=== PATIENT | male | born 1935 | race Caucasian/White ===

== ENCOUNTER 2020-02-13 19:53 | Inpatient (IN) | payer MEDICARE, OTHER ==
[2020-02-13 20:47] LABS: Basophils % (A) 0 %; Eosinophils # (A) 0.2 k/uL (0-0.7); Eosinophils % (A) 1 %; HCT 44.3 % (39.0-53.0); HGB 14.4 gm/dL (13.0-17.5); Lymphocytes # (A) 1.3 k/uL (1.0-4.8); Lymphocytes % (A) 8 %; MCH 33.6 pg (25.0-35.0); MCHC 32.6 g/dL (31.0-37.0); Macrocytosis Slight; Mean Platelet Volume 9.3; Monocytes # (A) 0.9 k/uL (0-1.0); Monocytes % (A) 6 %; Neutrophils % (A) 84 %; Platelet Count 107 k/uL (150-450); RDW 13.7 % (11.5-15.5); WBC 15.5 k/uL (3.8-10.6)
--- NOTE | 2020-02-13 20:50 | XR ---
EXAMINATION TYPE: XR chest 2V DATE OF EXAM: 02/13/2020 COMPARISON: None INDICATION: Weakness nausea TECHNIQUE: Frontal and lateral views of the chest are obtained. FINDINGS: The heart size is normal. The pulmonary vasculature is normal. The lungs are clear. No focal consolidations are evident. Sternotomy wires are in the midline. Cardi ac valve surgery is evident. IMPRESSION: 1. No acute pulmonary process.
[2020-02-13 20:56] LABS: INR 1.2 (<1.2); Partial Thromboplastin Time 26.6 sec (22.0-30.0); Prothrombin Time 12.2 sec (9.0-12.0)
[2020-02-13 20:58] LABS: ALT 21 U/L (4-49); AST 28 U/L (17-59); African American GFR (CKD) >90 (>60 ml/min/1.73 sqM); Albumin 4.1 g/dL (3.5-5.0); Alkaline Phosphatase 88 U/L (38-126); Anion Gap 9 mmol/L; Blood Urea Nitrogen 22 mg/dL (9-20); Calcium 9.1 mg/dL (8.4-10.2); Carbon Dioxide 26 mmol/L (22-30); Chloride 101 mmol/L (98-107); Creatine Kinase 59 U/L (55-170); Glucose 108 mg/dL (74-99); Magnesium 1.5 mg/dL (1.6-2.3); Non-African American GFR(CKD) 84 (>60 ml/min/1.73 sqM); Potassium 3.7 mmol/L (3.5-5.1); Sodium 136 mmol/L (137-145); Total Bilirubin 1.7 mg/dL (0.2-1.3); Total Protein 6.8 g/dL (6.3-8.2)
[2020-02-13 22:11] LABS: Appearance,Urine Clear (Clear); Bacteria,Urine Rare /hpf; Bilirubin,Urine Negative (Negative); Blood,Urine Negative (Negative); Color,Urine Light Yellow; Glucose,Urine (UA) Negative (Negative); Ketones,Urine Negative (Negative); Leukocyte Esterase,Urine Small (Negative); Nitrite,Urine Negative (Negative); PH, Urine 6.5 (5.0-8.0); Protein,Urine Negative (Negative); RBC,Urine 1 /hpf (0-5); Specific Gravity,Urine 1.006 (1.001-1.035); Urobilinogen,Urine <2.0 mg/dL (<2.0); WBC,Urine 7 /hpf (0-5)
[2020-02-13] MEDS ORDERED: cefTRIAXone IN SWFI 1,000 MG/10 ML SYRINGE IVP STA (22:17)
--- NOTE | 2020-02-13 23:04 | CT ---
EXAMINATION TYPE: CT abdomen pelvis w con DATE OF EXAM: 02/13/2020 COMPARISON: None HISTORY: Nausea, weakness and elevated WBC. CT DLP: 901.4 mGycm Automated exposure control for dose reduction was used. CONTRAST: Performed with IV Contrast, patient injected with 100ml mL of Isovue 300. Images were obtained from the diaphragm to the floor the pelvis with IV contrast. There is some infiltrate and atelectasis in the left lower lobe. There is no pleural effusion. There is mild interstitial infiltrate right lower lobe. There is small hiatal hernia. Heart is enlarged. Th e stomach is intact. Liver shows no focal defect. The bile ducts are not dilated. There is 1 cm calci fied gallstone in the gallbladder neck. Spleen is intact. There is no pancreatic mass. Pancreas appea rs normal. There is no adrenal mass. Kidneys have normal size. There is no hydronephrosis. There is 4 cm cortica l cyst medial left kidney. Delayed images show normal renal excretion. Ureters are not dilated. There is some trabeculation and linear density within the posterior urinary bladder. There is right-sided inguinal hernia that appears to contain a small loop of ileum. I see no sign of a bowel obstruction. There is prostatic calcification. There is no free fluid in the pelvis. There is no mesenteric edema. There is no ascites or free air. There is no bowel obstruction. Appendi x is not definitely seen. There is no sign of thickened appendix. Lumbar vertebra have normal alignme nt. There is narrowing of lumbar disc spaces with spurring. Posterior elements are intact. There is n o compression fracture. Bony pelvis is intact. IMPRESSION: Cholelithiasis. No dilated ducts. Atheromatous aorta. Right inguinal hernia containing short piece of right ilium. No evidence of bowel obstruction. Abnormal posterior urinary bladder with some linear density that could relate to trabeculation. Bladd er tumor is possible. Follow-up recommended. Left lower lobe pneumonia.
[2020-02-13] MEDS ORDERED: AZITHROMYCIN 500 MG in SODIUM CHLORIDE 0.9% 250 ML IVPB STA (23:14)
--- NOTE | 2020-02-13 23:15 | ED ---
Weakness HPI - General Chief complaint: Weakness Stated complaint: Nausea, Weakness Time Seen by Provider: 02/13/20 20:05 Source: patient Mode of arrival: ambulatory Limitations: no limitations - History of Present Illness Initial comments: Patient is an 84-year-old male past medical history of A. fib who presents to the emergency room with reported generalized weakness and nausea. Patient states that he was out on his boat today. He was having anorexia, stating that food just didn't seem like it tasted good. Patient was nauseated without any vomiting. Had some chills without recorded fever. He denies any abdominal pain. No changes in his bowel or bladder habits. Denies chest pain. No shortness of breath. Does admit to a cough. No sick contacts with similar symptoms. No recent medication changes. There are no other alleviating, pre cipitating or modifying factors - Related Data Home Medications Medication Instructions Recorded Confirmed Apixaban [Eliquis] 5 mg PO BID 02/13/20 02/13/20 RX: Atorvastatin [Lipitor] 20 mg PO HS@199902/13/20 02/13/20 RX: Omeprazole [PriLOSEC] 20 mg PO DAILY 02/13/20 02/13/20 RX: Timolol [Betimol 0.5% Ophth 1 drop BOTH EYES BID 02/13/20 02/13/20 Soln] Vitamin D2 (Unknown Strength) 1 tab PO DAILY 02/13/20 02/13/20 Vits A,C,E/Lutein/Minerals 1 tab PO DAILY 02/13/20 02/13/20 [Ocuvite with Lutein Tablet] Allergies Allergy/AdvReac Type Severity Reaction Status Date / Time levofloxacin [From Levaquin] Allergy aches Verified 02/13/20 22:50 Review of Systems ROS Statement: Those systems with pertinent positive or pertinent negative responses have been documented in the HPI. ROS Other: All systems not noted in ROS Statement are negative. Past Medical History Past Medical History: Atrial Fibrillation, GERD/Reflux, Hyperlipidemia History of Any Multi-Drug Resistant Organisms: None Reported Past Surgical History: Prostate Surgery Additional Past Surgical History / Comment(s): skin problem removed, TURP, atrial valve replaced. 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 fib with a rate of 96. QRS 96. QTC of 472. No acute ST segment elevations or depressions Medical Decision Making - Medical Decision Making Upon arrival the patient is placed into room 2. A thorough history and physical exam was performed. Peripheral IV is established. Laboratory studies were conducted. White count elevated at 15.5. Magnesium low at 1.5. Urinalysis shows rare bacteria and small leukocyte esterase. Chest x-ray demonstrates no a cute cardiopulmonary processes. CT the patient's abdomen and pelvis is performed because of leukocytosis, low-grade fever and nausea. It demonstrates cholelithiasis, right inguinal hernia, left lower lobe pneumonia. Abnormal findings with the urinary bladder however patient's son reports that these are chronic for him. The patient is given a dose of Rocephin and azithromycin. Patient will be admitted to [facility]. Dr. Connelly does present to the emergency room to evaluate the patient. Patient agreed to this treatment plan and was transferred to the floor in stable - Lab Data Result diagrams: 02/13/20 20:37 02/13/20 20:37 Lab Results 02/13/20 02/13/20 02/13/20 Range/Units 20:37 20:37 20:37 WBC 15.5 H (3.8-10.6) k/uL RBC 4.30 (4.30-5.90) m/uL Hgb 14.4 (13.0-17.5) gm/dL Hct 44.3 (39.0-53.0) % MCV 103.0 H (80.0-100.0) fL MCH 33.6 (25.0-35.0) pg MCHC 32.6 (31.0-37.0) g/dL RDW 13.7 (11.5-15.5) % Plt Count 107 L (150-450) k/uL Neutrophils % 84 % Lymphocytes % 8 % Monocytes % 6 % Eosinophils % 1 % Basophils % 0 % Neutrophils # 13.0 H (1.3-7.7) k/uL Lymphocytes # 1.3 (1.0-4.8) k/uL Monocytes # 0.9 (0-1.0) k/uL Eosinophils # 0.2 (0-0.7) k/uL Basophils # 0.0 (0-0.2) k/uL Macrocytosis Slight PT 12.2 H (9.0-12.0) sec INR 1.2 H (<1.2) APTT 26.6 (22.0-30.0) sec Sodium (137-145) mmol/L Potassium (3.5-5.1) mmol/L Chloride (98-107) mmol/L Carbon Dioxide (22-30) mmol/L Anion Gap mmol/L BUN (9-20) mg/dL Creatinine (0.66-1.25) mg/dL Est GFR (CKD-EPI)AfAm (>60 ml/min/1.73 sqM) Est GFR (CKD-EPI)NonAf (>60 ml/min/1.73 sqM) Glucose (74-99) mg/dL Plasma Lactic Acid Ty (0.7-2.0) mmol/L Calcium (8.4-10.2) mg/dL Magnesium (1.6-2.3) mg/dL Total Bilirubin (0.2-1.3) mg/dL AST (17-59) U/L ALT (4-49) U/L Alkaline Phosphatase (38-126) U/L Creatine Kinase (55-170) U/L Troponin I (0.000-0.034) ng/mL NT-Pro-B Natriuret Pep pg/mL Total Protein (6.3-8.2) g/dL Albumin (3.5-5.0) g/dL Lipase (23-300) U/L TSH (0.465-4.680) mIU/L Urine Color Light Yellow Urine Appearance Clear (Clear) Urine pH 6.5 (5.0-8.0) Ur Specific [place] 1.006 (1.001-1.035) Urine Protein Negative (Negative) Urine Glucose (UA) Negative (Negative) Urine Ketones Negative (Negative) Urine Blood Negative (Negative) Urine Nitrite Negative (Negative) Urine Bilirubin Negative (Negative) Urine Urobilinogen <2.0 (<2.0) mg/dL Ur Leukocyte Esterase Small H (Negative) Urine RBC 1 (0-5) /hpf Urine WBC 7 H (0-5) /hpf Urine Bacteria Rare H (None) /hpf 02/13/20 02/13/20 02/13/20 Range/Units 20:37 20:37 20:37 WBC (3.8-10.6) k/uL RBC (4.30-5.90) m/uL Hgb (13.0-17.5) gm/dL Hct (39.0-53.0) % MCV (80.0-100.0) fL MCH (25.0-35.0) pg MCHC (31.0-37.0) g/dL RDW (11.5-15.5) % Plt Count (150-450) k/uL Neutrophils % % Lymphocytes % % Monocytes % % Eosinophils % % Basophils % % Neutrophils # (1.3-7.7) k/uL Lymphocytes # (1.0-4.8) k/uL Monocytes # (0-1.0) k/uL Eosinophils # (0-0.7) k/uL Basophils # (0-0.2) k/uL Macrocytosis PT (9.0-12.0) sec INR (<1.2) APTT (22.0-30.0) sec Sodium 136 L (137-145) mmol/L Potassium 3.7 (3.5-5.1) mmol/L Chloride 101 (98-107) mmol/L Carbon Dioxide 26 (22-30) mmol/L Anion Gap 9 mmol/L BUN 22 H (9-20) mg/dL Creatinine 0.73 (0.66-1.25) mg/dL Est GFR (CKD-EPI)AfAm >90 (>60 ml/min/1.73 sqM) Est GFR (CKD-EPI)NonAf 84 (>60 ml/min/1.73 sqM) Glucose 108 H (74-99) mg/dL Plasma Lactic Acid Ty 1.2 (0.7-2.0) mmol/L Calcium 9.1 (8.4-10.2) mg/dL Magnesium 1.5 L (1.6-2.3) mg/dL Total Bilirubin 1.7 H (0.2-1.3) mg/dL AST 28 (17-59) U/L ALT 21 (4-49) U/L Alkaline Phosphatase 88 (38-126) U/L Creatine Kinase 59 (55-170) U/L Troponin I <0.012 (0.000-0.034) ng/mL NT-Pro-B Natriuret Pep pg/mL Total Protein 6.8 (6.3-8.2) g/dL Albumin 4.1 (3.5-5.0) g/dL Lipase 58 (23-300) U/L TSH 2.320 (0.465-4.680) mIU/L Urine Color Urine Appearance (Clear) Urine pH (5.0-8.0) Ur Specific [place] (1.001-1.035) Urine Protein (Negative) Urine Glucose (UA) (Negative) Urine Ketones (Negative) Urine Blood (Negative) Urine Nitrite (Negative) Urine Bilirubin (Negative) Urine Urobilinogen (<2.0) mg/dL Ur Leukocyte Esterase (Negative) Urine RBC (0-5) /hpf Urine WBC (0-5) /hpf Urine Bacteria (None) /hpf 02/13/20 Range/Units 20:37 WBC (3.8-10.6) k/uL RBC (4.30-5.90) m/uL Hgb (13.0-17.5) gm/dL Hct (39.0-53.0) % MCV (80.0-100.0) fL MCH (25.0-35.0) pg MCHC (31.0-37.0) g/dL RDW (11.5-15.5) % Plt Count (150-450) k/uL Neutrophils % % Lymphocytes % % Monocytes % % Eosinophils % % Basophils % % Neutrophils # (1.3-7.7) k/uL Lymphocytes # (1.0-4.8) k/uL Monocytes # (0-1.0) k/uL Eosinophils # (0-0.7) k/uL Basophils # (0-0.2) k/uL Macrocytosis PT (9.0-12.0) sec INR (<1.2) APTT (22.0-30.0) sec Sodium (137-145) mmol/L Potassium (3.5-5.1) mmol/L Chloride (98-107) mmol/L Carbon Dioxide (22-30) mmol/L Anion Gap mmol/L BUN (9-20) mg/dL Creatinine (0.66-1.25) mg/dL Est GFR (CKD-EPI)AfAm (>60 ml/min/1.73 sqM) Est GFR (CKD-EPI)NonAf (>60 ml/min/1.73 sqM) Glucose (74-99) mg/dL Plasma Lactic Acid Ty (0.7-2.0) mmol/L Calcium (8.4-10.2) mg/dL Magnesium (1.6-2.3) mg/dL Total Bilirubin (0.2-1.3) mg/dL AST (17-59) U/L ALT (4-49) U/L Alkaline Phosphatase (38-126) U/L Creatine Kinase (55-170) U/L Troponin I (0.000-0.034) ng/mL NT-Pro-B Natriuret Pep 1500 pg/mL Total Protein (6.3-8.2) g/dL Albumin (3.5-5.0) g/dL Lipase (23-300) U/L TSH (0.465-4.680) mIU/L Urine Color Urine Appearance (Clear) Urine pH (5.0-8.0) Ur Specific [place] (1.001-1.035) Urine Protein (Negative) Urine Glucose (UA) (Negative) Urine Ketones (Negative) Urine Blood (Negative) Urine Nitrite (Negative) Urine Bilirubin (Negative) Urine Urobilinogen (<2.0) mg/dL Ur Leukocyte Esterase (Negative) Urine RBC (0-5) /hpf Urine WBC (0-5) /hpf Urine Bacteria (None) /hpf Disposition Clinical Impression: CAP (community acquired pneumonia), Leukocytosis, Nausea, Cholelithiases Disposition: ADMITTED IP TO THIS [facility] Condition: Stable Is patient prescribed a controlled substance at d/c from ED?: No Decision to Admit Reason: Admit from EC Decision Date: 02/13/20 Decision Time: 23:31
[2020-02-13] MEDS ORDERED: ONDANSETRON 4 MG/2 ML VIAL IVP PRN (23:31)
[2020-02-13] MEDS ORDERED: NALOXONE 0.4 MG/ML 1 ML VIAL IV PRN (23:31)
[2020-02-13] MEDS ORDERED: SODIUM CHLORIDE 0.9% 1,000 ML IV SCH (23:45)
[2020-02-14 01:08] VITALS: RESP 16
--- NOTE | 2020-02-14 02:59 | P.HPIM ---
History of Present Illness H&P Date: 02/14/20 The patient is an 84-year-old male with a PMH of permanent A. fib, hyperlipidemia, and chronic GERD who presented to the ED accompanied by son with complaints of nausea and generalized weakness. Patient reports that he was in his usual state of health until today when he was on his boat with his daughter when he attempted to eat some food and immediately became nauseous with the smell. He denied episodes of vomiting. He subsequently felt warm to his daughter though his temperature was not checked. The patient also endorsed feeling tired and weak, and called his son to seek medical attention, which as per his son at the bedside is unusual for him. At time of interview, the patient reported that he feels somewhat better, though not back to his baseline as of yet. He endorsed a chronic cough which has previously been worked up by multiple providers and was attributed to his chronic GERD as per the patient's son. He reported that the cough did sound somewhat more "wet" over the past 2 days. The patient otherwise denied chest discomfort, Shortness of breath, or palpitations. He also denied dysuria, urinary frequency, abdominal pain, diarrhea, or dizziness. The patient lives by himself and is independent in all of his ADLs and is overall in good health as per his son. In the emergency room, a CT abdomen revealed cholelithiasis, left lower lobe pneumonia, and an abnormal posterior urinary bladder with the possibility of a bladder tumor. EKG had revealed A. fib with PVCs at 96 bpm as reviewed by me. Laboratory evaluation revealed a WBC count of 15.5, hemoglobin of 14.4, platelets 107, troponin less than 0.012, sodium 136, potassium 3.7, BUN 22, creatinine 0.73, glucose 108, lactic acid 1.2, BNP 1500, and an unremarkable UA. Review of Systems Pertinent positives and negatives as discussed in HPI, a complete review of systems was performed and all other systems are negative. Past Medical History Past Medical History: Atrial Fibrillation, GERD/Reflux, Hyperlipidemia History of Any Multi-Drug Resistant Organisms: None Reported Past Surgical History: Prostate Surgery Additional Past Surgical History / Comment(s): skin problem removed, TURP, atrial valve replaced. Past Anesthesia/Blood Transfusion Reactions: No Reported Reaction Past Psychological History: No Psychological Hx Reported Smoking Status: Never smoker Past Alcohol Use History: None Reported Past Drug Use History: None Reported Medications and Allergies Home Medications Medication Instructions Recorded Confirmed Type Apixaban [Eliquis] 5 mg PO BID 02/13/20 02/13/20 History Atorvastatin [Lipitor] 20 mg PO HS@199902/13/20 02/13/20 History Omeprazole [PriLOSEC] 20 mg PO DAILY 02/13/20 02/13/20 History Timolol [Betimol 0.5% Ophth Soln] 1 drop BOTH EYES BID 02/13/20 02/13/20 History Vitamin D2 (Unknown Strength) 1 tab PO DAILY 02/13/20 02/13/20 History Vits A,C,E/Lutein/Minerals 1 tab PO DAILY 02/13/20 02/13/20 History [Ocuvite with Lutein Tablet] Allergies Allergy/AdvReac Type Severity Reaction Status Date / Time levofloxacin [From Levaquin] Allergy aches Verified 02/13/20 22:50 Physical Exam Vitals: Vital Signs Temp Pulse Pulse Resp BP BP Pulse Ox 02/13/20 23:47 99.8 F H 73 16 117/72 97 02/13/20 21:55 99.4 F 84 131/81 95 02/13/20 19:59 92 02/13/20 19:54 99.1 F 93 18 167/89 95 Intake and Output 02/13/20 02/13/20 02/14/20 14:59 22:59 06:59 Other: Voiding Method Toilet Weight 78.925 kg 78.925 kg General: non toxic, no distress, appears at stated age, normal weight Derm: no unusual rashes/lesions no unusual ecchymoses, warm, dry Head: atraumatic, normocephalic, symmetric Eyes: EOMI, no lid lag, anicteric sclera, pupils equal round reactive to light ENT: Nose and ears atraumatic, no thrush, no pharyngeal erythema Neck: No thyromegaly, no cervical lymphadenopathy, trachea midline, supple Mouth: no lip lesion, mucus membranes moist Cardiovascular: S1S2 irregularly irregular, no murmur, positive posterior tibial pulse bilateral, trace bilateral lower extremity edema, capillary refill less than 2 seconds Lungs: CTA bilateral, no rhonchi, no rales , no accessory muscle use Abdominal: soft, nontender to palpation, no guarding, no appreciable organomegaly, normal bowel sounds Ext: no gross muscle atrophy, muscle strength 5 out of 5 in all 4 extremities grossly, no contractures, Neuro: CN II-XI grossly intact, light touch intact all 4 extremities, finger to nose within normal limits, Psych: Alert, oriented, appropriate affect Results CBC & Chem 7: 02/13/20 20:37 02/13/20 20:37 Labs: Abnormal Lab Results - Last 24 Hours (Table) 02/13/20 02/13/20 02/13/20 Range/Units 20:37 20:37 20:37 WBC 15.5 H (3.8-10.6) k/uL MCV 103.0 H (80.0-100.0) fL Plt Count 107 L (150-450) k/uL Neutrophils # 13.0 H (1.3-7.7) k/uL PT 12.2 H (9.0-12.0) sec INR 1.2 H (<1.2) Sodium (137-145) mmol/L BUN (9-20) mg/dL Glucose (74-99) mg/dL Magnesium (1.6-2.3) mg/dL Total Bilirubin (0.2-1.3) mg/dL Ur Leukocyte Esterase Small H (Negative) Urine WBC 7 H (0-5) /hpf Urine Bacteria Rare H (None) /hpf 02/13/20 Range/Units 20:37 WBC (3.8-10.6) k/uL MCV (80.0-100.0) fL Plt Count (150-450) k/uL Neutrophils # (1.3-7.7) k/uL PT (9.0-12.0) sec INR (<1.2) Sodium 136 L (137-145) mmol/L BUN 22 H (9-20) mg/dL Glucose 108 H (74-99) mg/dL Magnesium 1.5 L (1.6-2.3) mg/dL Total Bilirubin 1.7 H (0.2-1.3) mg/dL Ur Leukocyte Esterase (Negative) Urine WBC (0-5) /hpf Urine Bacteria (None) /hpf Thrombosis Risk Factor Assmnt - Choose All That Apply Each Risk Factor Represents 3 Points: Age 75 years or older Thrombosis Risk Factor Assessment Total Risk Factor Score: 3 Thrombosis Risk Factor Assessment Level: Moderate Risk Assessment and Plan Plan: Community acquired pneumonia -Continue azithromycin and ceftriaxone -Continue with IV fluids -Supplemental oxygen -Follow-up coronavirus testing Elevated BUN, likely secondary to dehydration -Continue with IV fluids Hypomagnesemia -Replace and monitor Abnormal density on bladder on CT scan -Outpatient urology follow-up on discharge Elevated total bilirubin -Likely secondary to dehydration -Continue with IV fluids and monitor Thrombocytopenia, no baseline present -Monitor CBC for now Chronic conditions: Hyperlipidemia, A. fib -Continue with home Lipitor and Eliquis doses DVT prophylaxis -Eliquis The patient is admitted with an anticipated greater than 2 midnight stay for evaluation of community acquired pneumonia CODE STATUS: Full code Discussed with: Patient, son Anticipated discharge date: 2-[address]: Home A total of 40 minutes was spent on the care of this complex patient more than 50% of the time was spent in counseling and care coordination.
[2020-02-14] MEDS: MAGNESIUM SULFATE-D5W PMX 1 GM in DEXTROSE/WATER 1 100ML.BAG IVPB SCH ×2 (03:44→04:51)
[2020-02-14 08:28] VITALS: BP 109/57; PULSE 74; TEMP 98.1
[2020-02-14] MEDS ORDERED: APIXABAN 5 MG TAB PO SCH (09:00)
[2020-02-14] MEDS ORDERED: TIMOLOL 0.5% OPHTH DROPS 5 ML BTL BOTH EYES SCH (09:00)
[2020-02-14] MEDS ORDERED: VIT A,C & E-LUTEIN-MINERALS 1 EACH TAB PO SCH (09:00)
[2020-02-14] MEDS ORDERED: AZITHROMYCIN 500 MG TAB PO SCH (09:00)
[2020-02-14 09:12] LABS: African American GFR (CKD) >90 (>60 ml/min/1.73 sqM); Albumin 3.4 g/dL (3.5-5.0); Anion Gap 4 mmol/L; Blood Urea Nitrogen 18 mg/dL (9-20); Carbon Dioxide 29 mmol/L (22-30); Chloride 103 mmol/L (98-107); Glucose 116 mg/dL (74-99); Non-African American GFR(CKD) 82 (>60 ml/min/1.73 sqM); Potassium 3.7 mmol/L (3.5-5.1); Sodium 136 mmol/L (137-145); Total Protein 5.7 g/dL (6.3-8.2)
[2020-02-14 09:15] LABS: ALT 16 U/L (4-49); AST 23 U/L (17-59); Alkaline Phosphatase 65 U/L (38-126); Magnesium 2.3 mg/dL (1.6-2.3); Total Bilirubin 2.1 mg/dL (0.2-1.3)
[2020-02-14 09:27] LABS: Basophils % (A) 0 %; Eosinophils % (A) 0 %; HCT 39.9 % (39.0-53.0); HGB 12.8 gm/dL (13.0-17.5); Lymphocytes # (A) 1.6 k/uL (1.0-4.8); Lymphocytes % (A) 11 %; MCH 33.2 pg (25.0-35.0); MCHC 32.1 g/dL (31.0-37.0); MCV 103.3 fL (80.0-100.0); Macrocytosis Slight; Mean Platelet Volume 9.2; Monocytes # (A) 0.9 k/uL (0-1.0); Monocytes % (A) 6 %; Neutrophils # (A) 11.7 k/uL (1.3-7.7); Neutrophils % (A) 81 %; RBC 3.87 m/uL (4.30-5.90); RDW 13.6 % (11.5-15.5); WBC 14.3 k/uL (3.8-10.6)
[2020-02-14 09:52] LABS: Calcium 8.6 mg/dL (8.4-10.2)
--- NOTE | 2020-02-14 10:02 | US ---
EXAMINATION TYPE: US gallbladder DATE OF EXAM: 02/14/2020 COMPARISON: NONE CLINICAL HISTORY: gallstones, nausea. EXAM MEASUREMENTS: Liver Length: 12.7 cm Gallbladder Wall: 0.3 cm. CBD: 0.5 cm Right Kidney: 9.7 x 4.9 x 5.3 cm Extensive midline bowel gas, technically difficult study. Pancreas: Obscured by bowel gas Liver: portions visualized wnl, partially obscured Gallbladder: mobile stone, in neck when patient is supine, no wall thickening Evidence for sonographic Collazo's sign: no CBD: wnl Right Kidney: wnl IMPRESSION: 1. Cholelithiasis, mobile. 3. Exam is limitation due to bowel gas.
[2020-02-14 10:15] LABS: Platelet Count 98 k/uL (150-450)
--- NOTE | 2020-02-14 13:29 | P.DS ---
Providers Date of admission: 02/13/20 23:31 Expected date of discharge: 02/14/20 Attending physician: Denisa Connelly MD Primary care physician: Physician Nonstaff Hospital Course: Discharge Diagnosis: Pneumonia Dehydration Hypomagnesemia Thrombocytopenia Elevated bilirubin Macrocytosis Chronic A fib GERD HLD Glaucoma Mobile cholelithiasis Hospital Course: Patient is an 84 yo CM with A fib on anticoagulation with Eliquis, hyperlipidemia, chronic GERD, and chronically elevated white blood cell count per family who presented with complaints of nausea and generalized weakness. In the ER he underwent extensive evaluation. His initial vital signs showed slightly hypertensive with a blood pressure of 167/89. Initial laboratory analysis showed a white blood cell count of 15.5, platelets 107, INR 1.2, sodium 36, BUN 22, magnesium 1.5, and total bilirubin. Urinalysis was negative. Initial chest x-ray was negative. CT abdomen and pelvis showed cholelithiasis, right inguinal hernia, abnormal posterior urinary bladder with linear density, and left lower lobe pneumonia. He was started on Rocephin, Zithromax, and IV fluids. He was admitted for further monitoring. He underwent a gallbladder ultrasound which showed multiple cholelithiasis. By the morning of 02/13 the patient felt back to his normal self. Patient's son is a radiologist. The patient, his son, and myself discussed options for continued monitoring in the hospital secondary to his leukocytosis and pneumonia. However came to light that he has had some chronic leukocytosis and follows with manager client in [place]. Patient was feeling back to his normal self. Due to his ability to have close monitoring of the physician was determined appropriate for him to be discharged home. He will complete a total of a 7 day course of antibiotics for his pneumonia. I have lengthened this treatment by 2 days secondary to his advanced age and leukocytosis. He was determined stable for discharge home. They are aware of bladder abnormality was will follow-up with urology if any hematuria. They will also decide on follow-up for gallstone. Patient seen and examined at bedside. Feeling back to baseline. He has been been coughing which is near his baseline, but his fatigue last night was unusual. Denies shortness of breath, lightheadedness, dizziness. F/U with nursing RA with exercise pulse ox 95%, Patient feels back to baseline Vital signs reviewed and stable. General: non toxic, no distress, appears younger than stated age Derm: warm, dry Head: atraumatic, normocephalic, symmetric Eyes: EOMI, no lid lag, anicteric sclera Mouth: no lip lesion, mucus membranes moist Cardiovascular: S1S2 reg, no murmur, positive posterior tibial pulse bilateral, Lungs: Ronchi left base, no accessory muscle use Abdominal: soft, nontender to palpation, no guarding, no appreciable organomegaly Ext: no gross muscle atrophy, no edema, no contractures Neuro: CN II-XI grossly intact, no focal neuro deficits Psych: Alert, oriented, appropriate affect A total of 25 minutes of time were spent preparing this complex discharge summary . Patient Condition at Discharge: Stable Plan - Discharge Summary Discharge Rx Participant: No New Discharge Prescriptions: New Cefdinir [Omnicef] 300 mg PO Q12HR #10 capsule Azithromycin [Zithromax] 500 mg PO DAILY #5 tab Continue Vitamin D2 (Unknown Strength) 1 tab PO DAILY Vits A,C,E/Lutein/Minerals [Ocuvite with Lutein Tablet] 1 tab PO DAILY Timolol [Betimol 0.5% Ophth Soln] 1 drop BOTH EYES BID #1 bottle Apixaban [Eliquis] 5 mg PO BID #10 tab Atorvastatin [Lipitor] 20 mg PO HS@2000 #10 tab Omeprazole [PriLOSEC] 20 mg PO DAILY #5 cap Discharge Medication List Vitamin D2 (Unknown Strength) 1 tab PO DAILY 02/13/20 [History] Vits A,C,E/Lutein/Minerals [Ocuvite with Lutein Tablet] 1 tab PO DAILY 02/13/20 [History] Apixaban [Eliquis] 5 mg PO BID #10 tab 02/14/20 [Rx] Atorvastatin [Lipitor] 20 mg PO HS@2000 #10 tab 02/14/20 [Rx] Azithromycin [Zithromax] 500 mg PO DAILY #5 tab 02/14/20 [Rx] Cefdinir [Omnicef] 300 mg PO Q12HR #10 capsule 02/14/20 [Rx] Omeprazole [PriLOSEC] 20 mg PO DAILY #5 cap 02/14/20 [Rx] Timolol [Betimol 0.5% Ophth Soln] 1 drop BOTH EYES BID #1 bottle 02/14/20 [Rx] Follow up Appointment(s)/Referral(s): Nonstaff,Physician [Primary Care Provider] - 3 Days Patient Instructions/Handouts: Pneumonia (DC) Activity/Diet/Wound Care/Special Instructions: Activity: as tolerated Diet: heart healthy Special Instructions: Return to hospital if fevers, breathing, cough or fatigue worsens. Discharge Disposition: HOME SELF-CARE
[2020-02-14 17:16] LABS: Ferritin 240.7 ng/mL (22.0-322.0)
[2020-02-14] MEDS ORDERED: ATORVASTATIN 20 MG TAB PO SCH (20:00)
== END 2020-02-14 14:21 | disposition home or self-care (01) | DRG 194 ==
LOC: EC 19:53 → 4SSUR 23:31
PROVIDERS: ADMIT Internal Medicine; ATTEND Internal Medicine
DX: J18.9 Pneumonia, unspecified organism (principal); I48.21 Permanent atrial fibrillation; D69.6 Thrombocytopenia, unspecified; E86.0 Dehydration; Z20.828 Contact with and (suspected) exposure to other viral communicable diseases; E83.42 Hypomagnesemia; K80.20 Calculus of gallbladder without cholecystitis without obstruction; K40.90 Unilateral inguinal hernia, without obstruction or gangrene, not specified as recurrent; E78.5 Hyperlipidemia, unspecified; D75.89 Other specified diseases of blood and blood-forming organs; H40.9 Unspecified glaucoma; I49.3 Ventricular premature depolarization; K21.9 Gastro-esophageal reflux disease without esophagitis; R93.41 Abnormal radiologic findings on diagnostic imaging of renal pelvis, ureter, or bladder; Z79.01 Long term (current) use of anticoagulants; Z79.899 Other long term (current) drug therapy; Z87.438 Personal history of other diseases of male genital organs; Z95.2 Presence of prosthetic heart valve; Z87.2 Personal history of diseases of the skin and subcutaneous tissue; Z98.890 Other specified postprocedural states; Z88.1 Allergy status to other antibiotic agents
CPT/HCPCS: 36415; 71046; 74177; 76705; 80053; 81001; 82550; 82728; 83605; 83615; 83690; 83735; 83880; 84145; 84443; 84484; 85025; 85379; 85610; 85730; 93005; 96374; 99285